=== PATIENT | male | born 1995 | race Caucasian/White ===

== ENCOUNTER 2017-03-21 19:19 | Emergency (ER) | payer SELFPAY ==
[~2017-03-21] VITALS: Ht 152.4 cm; Wt 54.4 kg
[2017-03-21 19:45] VITALS: BP 138/82
--- NOTE | 2017-03-21 19:47 | Emergency Room Report ---
History of Present Illness General Chief Complaint: Chest Pain Source: Patient Present Illness HPI 21 YO male presents to the emergency department complaining of 3 episodes today of sensation feeling shaky in the legs, 10 out of 10 in severity sharp chest pain with feeling short of breath while breathing rather fast. Patient denies previous episodes of these symptoms in the past. Patient states he recently had to take on a second job and has only been getting approximately 4 hours of sleep per night. He states he has not been eating healthy meals. Patient denies drug use or caffeine use. Patient denies past medical history specifically cardiac history. Patient does not report significant cardiac history in his family. Patient denies history of asthma he does state he has had a cough x2 days. Patient denies recent travel or calf pain. he states that the symptoms last for approximately 20 minutes and resolves after she sits down and rests. Patient denies night sweats, denies significant changes in weight denies palpitations. 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 Denies dyspnea. He states his symptoms resolved completely between episodes. Denies headaches, blurry vision, photophobia, loss of vision. denies syncope. He reports some intermittent numbness and tingling in the bilateral hands during episode of his symptoms. Denies N/V/fevers or chills.Denies CP, Palpitations, LOC, AMS, dizziness, Changes in Vision, Sensation, paresthesias, or a sudden severe headache. Allergies: Coded Allergies: No Known Allergies (Unverified , 03/21/17) Patient History Past Medical History: see triage record Past Surgical History: none Pertinent Family History: none Immunizations: UTD Reviewed Nursing Documentation: PMH: Agreed, PSxH: Agreed Nursing Documentation-PMH Past Medical History: No Stated History Review of Systems All Other Systems: negative except mentioned in HPI Physical Exam Vital Signs Date Time Temp Pulse Resp B/P (MAP) Pulse Ox O2 Delivery O2 Flow Rate FiO2 03/21/17 19:26 98.2 75 18 138/82 100 Room Air Sp02 EP Interpretation: reviewed, normal General Appearance: no apparent distress, alert, GCS 15, non-toxic Head: normocephalic, atraumatic Eyes: bilateral eye normal inspection, bilateral eye PERRL ENT: hearing grossly normal, normal voice Neck: full range of motion, supple/symm/no masses Respiratory: chest non-tender, lungs clear, normal breath sounds, no wheezing, speaking full sentences Cardiovascular #1: regular rate, rhythm, no edema, normal capillary refill Cardiovascular #2: 2+ radial (R), 2+ radial (L) Rectal: deferred Musculoskeletal: back normal, gait/station normal, normal range of motion, non- tender, no calf tenderness Neurologic: alert, oriented x3, responsive, motor strength/tone normal, sensory intact, normal gait, speech normal Psychiatric: judgement/insight normal, memory normal, mood/affect normal, anxious Skin: normal color, no rash, warm/dry, well hydrated Lymphatic: no adenopathy Medical Decision Making PA Attestation Dr. Jimenez is my supervising Physician whom patient management has been discussed with. Diagnostic Impression: Primary Impression: Anxiety reaction ER Course 21 YO male presents to the emergency department complaining of 3 episodes today of sensation feeling shaky in the legs, 10 out of 10 in severity sharp chest pain with feeling short of breath while breathing rather fast. Patient denies previous episodes of these symptoms in the past. Patient states he recently had to take on a second job and has only been getting approximately 4 hours of sleep per night. He states he has not been eating healthy meals. Patient denies drug use or caffeine use. Patient denies past medical history specifically cardiac history. Patient does not report significant cardiac history in his family. Patient denies history of asthma he does state he has had a cough x2 days. Patient denies recent travel or calf pain. he states that the symptoms last for approximately 20 minutes and resolves after she sits down and rests. Patient denies night sweats, denies significant changes in weight denies palpitations. 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 Denies dyspnea. He states his symptoms resolved completely between episodes. Denies headaches, blurry vision, photophobia, loss of vision. denies syncope. He reports some intermittent numbness and tingling in the bilateral hands during episode of his symptoms. Denies N/V/fevers or chills.Denies CP, Palpitations, LOC, AMS, dizziness, Changes in Vision, Sensation, paresthesias, or a sudden severe headache. Ddx considered but are not limited to anxiety, PA, PE, asthma, thyroid storm, hyperthyroid, electrolyte abnormality, EPS just to name a few. Vital signs: are WNL, pt. is afebrile H&PE are most consistent with anxiety attack, no cardiac RF's, low suspicion of PE alternate dx more likely. ORDERS: -- EK BPM NSR - no acute ST changes reviewed by Dr. Jimenez, his interpretation was scribed by RADHA Aguilera ED INTERVENTIONS: - 0.5 mg Ativan PO - D/w pt. [facility] as a good resource for evaluation for anxiety. -I do not suspect an emergent condition at this time. with current presentation pt. is stable for close outpatient follow up. D/w pt. to promptly return to ED with worsening or new symptoms. DISCHARGE: At this time pt. is stable for d/c to home. Will provide printed patient care instructions, and any necessary prescriptions. Care plan and follow up instructions have been discussed with the patient prior to discharge. EKG Diagnostic Results Rate: normal Rhythm: NSR - 76 ST Segments: no acute changes ASA given to the pt in ED: No PA Scribe Text - EK BPM NSR - no acute ST changes reviewed by Dr. Jimenez, his interpretation was scribed by RADHA Aguilera Last Vital Signs Date Time Temp Pulse Resp B/P (MAP) Pulse Ox O2 Delivery O2 Flow Rate FiO2 03/21/17 19:26 98.2 75 18 138/82 100 Room Air Disposition: HOME, SELF-CARE Condition: Stable Scripts Buspirone Hcl* (BUSPAR*) 10 Mg Tablet 10 MG ORAL THREE TIMES A DAY, #15 TAB 0 Refills Prov: Amairani Aguilera 03/21/17 Patient Instructions: Generalized Anxiety Disorder, Nonspecific Chest Pain Additional Instructions: Take medications as directed. Follow up with a Primary Care Provider in 3-5 days, even if your symptoms have resolved. --Please review list of primary care clinics, if you do not already have a primary care provider RECOMMEND [facility] FOR FOLLOW UP Return sooner to ED if new symptoms occur, or current symptoms become worse. - Please note that this Emergency Department Report was dictated using [employer] helper technology software, occasionally this can lead to erroneous entry secondary to interpretation by the dictation equipment. Amairani Aguilera Mar 21, 2017 19:47
[2017-03-21] MEDS ORDERED: LORazepam 0.5mg tab ORAL ONE (20:00)
[2017-03-21] MEDS ORDERED: BUSPAR10 MG ORAL (20:33)
[2017-03-21 20:38] VITALS: BP 138/82
[2017-03-22 02:23] VITALS: BP 138/82
== END 2017-03-21 20:38 | disposition home or self-care (01) ==
LOC: EMR 19:58
DX: F41.9 Anxiety disorder, unspecified (principal); R07.9 Chest pain, unspecified
CPT/HCPCS: 99283